=== PATIENT | male | born 1985 | race Caucasian/White ===

== ENCOUNTER 2018-01-02 13:31 | Emergency (ER) | payer SELFPAY ==
[2018-01-02 14:27] LABS: ADD MAN DIFF? NO
[2018-01-02 14:39] LABS: BASO # 0.1 x10^3/uL (0.0-0.2); BASO % 1 % (0-3); EOS # 0.2 x10^3/uL (0.0-0.7); EOS % 3 % (0-3); HEMATOCRIT 40.1 % (39.0-53.0); LYMPH # 1.9 x10^3/uL (1.0-4.8); LYMPH % 24 % (24-48); MEAN CORPUSCULAR HEMOGLOBIN 30 pg (25-35); MEAN CORPUSCULAR HGB CONC 35 g/dL (31-37); MEAN CORPUSCULAR VOLUME 87 fL (79-100); MONO # 0.9 x10^3/uL (0.0-1.1); MONO % 11 % (0-9); NEUT # 4.9 x10^3uL (1.8-7.7); NEUT % 62 % (31-73); PLATELET COUNT 250 x10^3/uL (140-400); RED BLOOD COUNT 4.63 x10^6/uL (4.30-5.70); RED CELL DISTRIBUTION WIDTH 14.2 % (11.5-14.5); WHITE BLOOD COUNT 7.9 x10^3/uL (4.0-11.0)
[2018-01-02 14:42] LABS: BILIRUBIN,URINE SMALL (NEG); CLARITY,URINE CLEAR; COLOR,URINE AMBER; GLUCOSE,URINE NEGATIVE (NEG); NITRITE,URINE NEGATIVE (NEG); PROTEIN,URINE NEGATIVE (NEG-TRACE); UROBILINOGEN,URINE 0.2 mg/dL (0.2 mg/dL)
[2018-01-02] MEDS: BENZONATATE 100 MG CAPSULE. PO (14:42)
[2018-01-02] MEDS: IV NORMAL SALINE 1000ML BAG 1,000 ML IV (14:43)
[2018-01-02 14:44] LABS: ETHANOL < 10 mg/dL (0-10)
[2018-01-02 14:45] LABS: ANION GAP 12 (6-14); BLOOD UREA NITROGEN 14 mg/dL (8-26); BUN/CREATININE RATIO 18 (6-20); CALCIUM 9.4 mg/dL (8.5-10.1); CARBON DIOXIDE 24 mmol/L (21-32); CHLORIDE 105 mmol/L (98-107); CREATININE 0.8 mg/dL (0.7-1.3); FECAL OB PT POSITIVE (NEG); GFR 113.5; GLUCOSE 82 mg/dL (70-99); NEG OBC FOB NEG; POS OBC FOB POS; POTASSIUM 3.8 mmol/L (3.5-5.1); SODIUM 141 mmol/L (136-145)
[2018-01-02 14:48] LABS: PROTHROMBIN TIME PATIENT 12.8 SEC (11.7-14.0)
[2018-01-02 14:49] LABS: BARBITURATES NEG (NEG); BENZODIAZEPINES NEG (NEG); CANNABINOIDS POS (NEG); COCAINE NEG (NEG); METHADONE NEG (NEG); OPIATES NEG (NEG); PHENCYCLIDINE NEG (NEG)
[2018-01-02 14:51] LABS: TROPONINI < 0.017 ng/mL (0.000-0.055)
[2018-01-02 14:51] LABS: ALBUMIN 4.3 g/dL (3.4-5.0); ALBUMIN/GLOBULIN RATIO 1.2 (1.0-1.7); ALK PHOS 71 U/L (46-116); ALT (SGPT) 66 U/L (16-63); AMPHETAMINE/METHAMPHETAMINE NEG (NEG); AST (SGOT) 57 U/L (15-37); ETHANOL, URINE NEG (NEG); LIPASE 96 U/L (73-393); MAGNESIUM 1.9 mg/dL (1.8-2.4); TOTAL BILIRUBIN 0.4 mg/dL (0.2-1.0)
[2018-01-02 14:58] LABS: THYROID STIM HORMONE (TSH) 0.951 uIU/mL (0.358-3.74)
[2018-01-02 14:59] LABS: NT-PRO BNP 38 pg/mL (0-124)
[2018-01-02 14:59] LABS: BACTERIA,URINE 0 /HPF (0-FEW); CKMB MASS 8.8 ng/mL (0.0-3.6); CREATINE KINASE 870 U/L (39-308); HYALINE CASTS, URINE MODERATE /HPF; RBC,URINE OCC /HPF (0-2); SQUAMOUS EPITHELIAL CELL,UR MOD /LPF; WBC,URINE RARE /HPF (0-4)
[2018-01-02] MEDS: IPRATRPIUM/ALBUTEROL 0.5/2.5MG 3 ML NEBU. NEB (15:07)
[2018-01-02] MEDS: IOHEXOL 300 MG/ML 100ML VIAL. IV (15:47)
[2018-01-02] MEDS: FAMOTIDINE 20 MG TABLET. PO (16:43)
== END 2018-01-02 17:19 | disposition home or self-care (01) ==
LOC: ER 17:19
DX: R55 Syncope and collapse (principal); K62.5 Hemorrhage of anus and rectum; J40 Bronchitis, not specified as acute or chronic; J01.90 Acute sinusitis, unspecified; R94.5 Abnormal results of liver function studies; F17.200 Nicotine dependence, unspecified, uncomplicated
CPT/HCPCS: 36415; 70450; 74022; 74177; 80053; 80307; 81001; 82274; 82553; 83690; 83735; 83880; 84443; 84484; 85025; 85610; 93005; 94640; 96360; 99285-25; G0480; J7030; J7620; Q9967

== ENCOUNTER 2018-01-12 08:03 | Emergency (ER) | payer SELFPAY ==
[2018-01-12] MEDS: fentaNYL PF VIAL 100 MCG/2 ML VIAL IV (08:38)
[2018-01-12] MEDS: ONDANSETRON PF 4 MG/2 ML VIAL. IV ×2 (08:38→10:13)
[2018-01-12] MEDS: IV NORMAL SALINE 1000ML BAG 1,000 ML IV (08:38)
[2018-01-12 08:54] LABS: ADD MAN DIFF? NO
[2018-01-12 08:57] LABS: BASO # 0.1 x10^3/uL (0.0-0.2); BASO % 1 % (0-3); BILIRUBIN,URINE NEGATIVE (NEG); CLARITY,URINE CLEAR; COLOR,URINE YELLOW; EOS # 0.6 x10^3/uL (0.0-0.7); EOS % 7 % (0-3); GLUCOSE,URINE NEGATIVE (NEG); HEMATOCRIT 40.7 % (39.0-53.0); HEMOGLOBIN 13.9 g/dL (13.0-17.5); LYMPH # 2.5 x10^3/uL (1.0-4.8); LYMPH % 29 % (24-48); MEAN CORPUSCULAR HEMOGLOBIN 30 pg (25-35); MEAN CORPUSCULAR HGB CONC 34 g/dL (31-37); MEAN CORPUSCULAR VOLUME 87 fL (79-100); MONO # 0.6 x10^3/uL (0.0-1.1); MONO % 8 % (0-9); NEUT # 4.7 x10^3uL (1.8-7.7); NEUT % 55 % (31-73); NITRITE,URINE NEGATIVE (NEG); PLATELET COUNT 278 x10^3/uL (140-400); PROTEIN,URINE NEGATIVE (NEG-TRACE); RED BLOOD COUNT 4.68 x10^6/uL (4.30-5.70); WHITE BLOOD COUNT 8.5 x10^3/uL (4.0-11.0)
[2018-01-12 09:03] LABS: ANION GAP 7 (6-14); BLOOD UREA NITROGEN 12 mg/dL (8-26); BUN/CREATININE RATIO 15 (6-20); CALCIUM 9.1 mg/dL (8.5-10.1); CARBON DIOXIDE 30 mmol/L (21-32); CHLORIDE 103 mmol/L (98-107); CREATININE 0.8 mg/dL (0.7-1.3); GFR 113.5; GLUCOSE 99 mg/dL (70-99); POTASSIUM 4.1 mmol/L (3.5-5.1); SODIUM 140 mmol/L (136-145)
[2018-01-12 09:05] LABS: BACTERIA,URINE 0 /HPF (0-FEW); RBC,URINE OCC /HPF (0-2); SQUAMOUS EPITHELIAL CELL,UR MOD /LPF; WBC,URINE OCC /HPF (0-4)
[2018-01-12 09:09] LABS: ALBUMIN 3.9 g/dL (3.4-5.0); ALK PHOS 79 U/L (46-116); ALT (SGPT) 49 U/L (16-63); AST (SGOT) 27 U/L (15-37); LIPASE 121 U/L (73-393); TOTAL BILIRUBIN 0.5 mg/dL (0.2-1.0); TOTAL PROTEIN 7.7 g/dL (6.4-8.2)
[2018-01-12] MEDS: KETOROLAC 30 MG/ML INJ. IV (10:14)
== END 2018-01-12 10:15 | disposition home or self-care (01) ==
LOC: ER 10:15
DX: R10.11 Right upper quadrant pain (principal); R11.2 Nausea with vomiting, unspecified; R19.7 Diarrhea, unspecified
CPT/HCPCS: 36415; 74176; 76705; 80053; 81001; 83690; 85025; 96361; 96374; 96375; 96376; 99285-25; J1885; J2405; J3010; J7030